=== PATIENT | male | born 1960 | race Caucasian/White ===

== ENCOUNTER 2016-11-17 05:28 | Emergency (ER) | payer OTHER ==
[~2016-11-17] VITALS: Ht 170.2 cm; Wt 67.3 kg
[~2016-11-17 05:28] MED LIST: FISH OIL 1,0001 EAC7 PO; LISINOPRIL10 MG PO; MEN'S DAILY FO1 EACH PO; PERCOCET 5/31 TABLET PO
[2016-11-17 06:14] LABS: BASE EXCESS 3.5 mEq/L (-3 to +3); BICARBONATE 28.5 mEq/L (22-26); CARBOXY HGB 2.8 % (0-5); METHEMOGLOBIN 0.7 % (0-1.5); PCO2 44 mm Hg (35-45); PO2 312 mm Hg (80-100); pH 7.42 (7.35-7.45)
[2016-11-17 06:15] LABS: COMMENTS - BLOOD GASES A+C+; DEVICE NIV; FI02 70 %; MODE SPONT; PEEP 5 CM/H20; PRES. SUPPORT 8 CM/H2O; SITE LR; TOTAL RESP RATE 30 resp/min
[2016-11-17 06:29] LABS: MCH 28.5 PG (29.0-34.0); MCHC 31.3 G/DL (30.0-36.0); MCV 90.9 FL (86-99); MEAN PLAT.VOLUME 9.3 uM^3 (9.0-12.4); NRBC (%) 0.3 /100 WBC (0-0); PLATELET COUNT 231 K/uL (156-360); RBC DIS.WIDTH-CV 15.2 % (11.8-14.6); RBC DIS.WIDTH-SD 48.8 % (39-53); RED BLOOD COUNT 4.18 M/uL (4.00-5.50); WHITE BLOOD COUNT 10.5 K/uL (4.1-10.2)
[2016-11-17 06:39] LABS: PROTHROMBIN TIME 9.7 (9.2-11.2); PTT 22.5 (25-32)
[2016-11-17 06:49] LABS: TROP-I INTERPRETATION NEGATIVE; TROPONIN-I 0.04 ng/mL (0.0-0.30)
[2016-11-17 07:06] LABS: ALKALINE PHOSPHATASE 79 IU/L (3-129); ANION GAP 8 MEQ/L (2-14); CHLORIDE 104 MEQ/L (99-109); GFR ESTIMATE (CALCULATED) > 59 mL/min/; GLUCOSE 95 mg/dL (70-99); LIPASE 27 U/L (1.0-51.0); POTASSIUM 4.8 MEQ/L (3.7-5.4); SAMPLE HEMOLYSIS CHECK 0; SAMPLE ICTERIC CHECK 0; SAMPLE LIPEMIA CHECK 0; SODIUM 141 MEQ/L (136-147); TOTAL BILIRUBIN 0.5 MG/DL (0.0-1.0); UREA NITROGEN (BUN) 23 mg/dL (9-23)
[2016-11-17 08:15] VITALS: BP 113/82
== END 2016-11-17 08:29 | disposition short-term general hospital (02) ==
LOC: EME → EDBD 05:28 → EME 08:29
PROVIDERS: Emergency Medicine
DX: J90 Pleural effusion, not elsewhere classified (principal); R06.00 Dyspnea, unspecified; I10 Essential (primary) hypertension; Z98.890 Other specified postprocedural states; F17.200 Nicotine dependence, unspecified, uncomplicated
CPT/HCPCS: 36600; 71010; 80053; 82803; 83605; 83690; 83880; 84484; 85027; 85610; 85730; 87040; 93005; 94002; 94640; 94799; 99281; 99285; J0696; J2060; J2270; J2930; J7030; J7050; J7644